=== PATIENT | female | born 1980 | race Two or more races ===

== ENCOUNTER 2021-02-24 13:15 | Emergency (ER) | payer OTHER ==
[~2021-02-24] VITALS: Ht 154.9 cm; Wt 56.2 kg
== END 2021-02-24 22:49 | disposition home or self-care (01) ==
LOC: ER 13:15
DX: T61.11XA Scombroid fish poisoning, accidental (unintentional), initial encounter (principal); Y92.511 Restaurant or cafe as the place of occurrence of the external cause